=== PATIENT | male | born 1995 | race Caucasian/White ===

== ENCOUNTER 2017-11-21 14:01 | Emergency (ER) | payer OTHER ==
[~2017-11-21] VITALS: Ht 170.2 cm; Wt 72.6 kg
[~2017-11-21 14:01] MED LIST: NOHOMEMEDICATIONS
[2017-11-21] MEDS ORDERED: NORCO 5-325 TA1 EACH PO (15:29)
[2017-11-21 15:44] VITALS: BP 126/68
== END 2017-11-21 15:46 | disposition home or self-care (01) ==
LOC: M.ERS 14:01
DX: S52.182A Other fracture of upper end of left radius, initial encounter for closed fracture (principal); G43.909 Migraine, unspecified, not intractable, without status migrainosus; Z88.0 Allergy status to penicillin; W21.89XA Striking against or struck by other sports equipment, initial encounter; Y93.51 Activity, roller skating (inline) and skateboarding; Y92.89 Other specified places as the place of occurrence of the external cause; Y99.8 Other external cause status

== ENCOUNTER 2018-11-07 21:14 | Emergency (ER) | payer OTHER ==
[~2018-11-07] VITALS: Ht 177.8 cm; Wt 70.3 kg
[~2018-11-07 21:14] MED LIST changes: +NORCO 5-325 TA1 EACH PO
[2018-11-07 21:18] VITALS: BP 129/79
[2018-11-07] MEDS ORDERED: IBUPROFEN 600600 M1 PO (21:51)
[2018-11-07] MEDS ORDERED: BACTRIM DS TAB1 EACH PO (21:51)
== END 2018-11-07 22:00 | disposition home or self-care (01) ==
LOC: M.ERS 21:14
DX: S50.851A Superficial foreign body of right forearm, initial encounter (principal); G43.909 Migraine, unspecified, not intractable, without status migrainosus; Z88.0 Allergy status to penicillin; W45.8XXA Other foreign body or object entering through skin, initial encounter; Y92.89 Other specified places as the place of occurrence of the external cause; Y93.89 Activity, other specified; Y99.8 Other external cause status